=== PATIENT | female | born 1960 | race Caucasian/White ===

== ENCOUNTER 2023-11-24 10:42 | Outpatient (AMB) | payer OTHER, SELFPAY ==
--- NOTE | 2023-11-24 10:47 | A.OFFPC_ITS ---
Vital Signs 11/24/23 10:49 Height 5 ft 3.75 in Weight 158 lb BMI 27.3 BP 100/56 L Blood Pressure Location Lt brachial Position Sitting Respiration 12 Pulse 83 Pulse Source Pulse Oximeter Pulse Oximetry (%) 98 Oxygen Delivery Method Room Air Intake Visit Reasons: MARYCRU[facility] from [facility] Intake Note: Patient is here to establish care with [facility]. Patient reports she is in constant pain with her back. Naturopathic Doctor Required: No Accompanied by: Self / Same As Patient Allergies nabumetone [From Relafen] Allergy (Severe, Verified 11/24/23 10:55) Anaphylaxis simvastatin Allergy (Severe, Verified 11/24/23 10:55) Muscle Pain BEE STING Allergy (Severe, Uncoded 11/24/23 10:55) Anaphylaxis Tobacco use date assessed: 11/24/23 Dental Screening Dental Screen Date: 11/24/23 Did you have a dental visit in the last 12 months?: Yes Did you have a dental problem in the last 6 months where you did not have access to dental care?: No Was dental information given to patient?: Patient has dentist HPI HPI Comments History of Present Illness Details The patient is a 63-year-old female with a past medical history of breast cancer, CHELE, asthma, tobacco use, seasonal allergies presenting for follo w-up Seen in 08/29/2023. Was endorsing fatigue. continues to suffer from fatigue Was worried about thyroid levels. Denied abnormal weight loss, night sweats Musculoskeletal: Osteoarthritis. Continue low back pain. Ankle. MRI lumbar spine with annular tear, degenerative changes but no nerve impingement. She felt that she was not positioned in the right way during her most recent MRI says during her 1st MRI they are very adamant that generally straight. She has Achilles tendinopathy. No fracture is identified. Requested ortho referral and repeat MRI for worsening back pain Heme/Onc: The patient has a history of left breast invasive ductal carcinoma T2 N0 grade 3 triple negative diagnosed 11/2017. She underwent left partial breast mastectomy: Dr. Patel). She stopped chemotherapy without completion (Taxol). She is now radiation early. Was receiving in May 2018. She has taken a rib antioxidants/anti-inflammatory supplements. Her MRI is up-to-date. She feels nauseous for the 1-2 days following contrast Colonoscopy 2011 Due for breast cancer screening last mammo 2020 this was ordered. ROS see HPI PHYSICAL EXAM: GENERAL: Alert and oriented x 3. NAD EYES: EOMI. Anicteric. HENT: Moist mucous membranes. No scleral icterus. No cervical lymphadenopathy. LUNGS: Clear to auscultation bilaterally. CARDIOVASCULAR: Regular rate and rhythm. No murmur. No JVD. ABDOMEN: Soft, non-tender +bs EXTREMITIES: No edema. Non-tender. SKIN: No rashes or lesions. Warm. NEUROLOGIC: No focal neurological deficits. CN II-XII grossly intact PSYCHIATRIC: Cooperative. Appropriate mood and affect [facility] Medical History Tobacco use disorder, continuous Seasonal allergies Right shoulder pain Right ankle pain Low back pain Left knee pain Injury of left thumb Fall (on) (from) other stairs and steps, subsequent encounter DDD (degenerative disc disease), lumbosacral Breast cancer of upper-outer quadrant of left female breast Asthma Arthritis Acute exacerbation of chronic low back pain Surgical History History of total cystectomy History of tonsillectomy and adenoidectomy History of colonoscopy History of lumpectomy Family History Mother Skin cancer Diabetes Thyroid condition Father Heart disease Acute leukemia Maternal Grandmother Uterine cancer Paternal Grandfather Stomach cancer Paternal Uncle Bladder cancer FH: prostate cancer Social History Household Members: None Housing: House Alcohol intake: current Alcohol intake frequency: a few times a week Patient Tobacco Use Status: Current everyday Tobacco user Cigarettes Per Day: 4 Years Smoked: 16 e-Cigarette/Vaping Use: Never Used service: No Current occupational status: disabled Cognitive needs: No Hearing needs: No Vision needs: Yes (reading glasses) Questionnaire PHQ-9 Over the last 2 weeks, how often have you been bothered by any of the following problems? [id number] - PHQ-9 Billing: Patient declined-do not bill Source: Developed by Drs. Arias Kohli, Consuelo Vance, Chauncey Bower and colleagues, with an educational yoly from [employer]. Thrive Questionnaire Date Thrive assessed: 11/24/23 I am a: Patient What is your living situation today?: I have a steady place to live Within the past 12 months, did the food you bought not last and you didn't have the money to get more?: I choose not to answer this question Within the past 12 months, did you worry whether your food would run out before you got money to buy more?: I choose not to answer this question Do you have trouble paying for medicines?: I choose not to answer this question Do you have trouble getting transportation to medical appointments?: I choose not to answer this question Do you have trouble paying your heating and electricity bill?: I choose not to answer this question Do you have trouble taking care of your child, family member or friend?: I choose not to answer this question Do you have trouble with day-to-day activities such as bathing, preparing meals, shopping, managing finances, etc.?: I choose not to answer this question Are you currently unemployed and looking for a job?: I choose not to answer this question Are you interested in more education?: I choose not to answer this question Please select the resources that you would like help with: None Currently or been in a relationship where the following occur: No concerns reported THRIVE Score: 0 AUDIT C Alcohol Use Questionnaire (AUDIT-C) 1. How often do you have a drink containing alcohol?: Monthly or less 2. How many drinks containing alcohol do you have on a typical day when you are drinking?: 1 or 2 3. How often do you have six or more drinks on one occasion?: Never Total Score: 1 FATMATA-7 AMB Questionnaire FATMATA-7 Date FATMATA - 7 assessed: 11/24/23 Source: Developed by Drs. Arias Kohli, Consuelo Vance, Chauncey Bower and colleagues, with an educational yoly from [employer]. FATMATA-7 Assessment Billing FATMATA-7 Assessment Tool: pt declined-do not bill Physical exam (Primary Care) Vital Signs: Last Vital Signs Pulse 83 11/24/23 10:49 Resp 12 11/24/23 10:49 BP 100/56 L 11/24/23 10:49 Pulse Ox 98 11/24/23 10:49 Oxygen Delivery Method Room Air 11/24/23 10:49 BMI result Body Mass Index 27.3 Tobacco/Smoking Status: Tobacco use Status Tobacco use date assessed 11/24/23 11/24/23 10:58 Patient Tobacco Use Status Current everyday Tobacco 11/24/23 10:55 e-Cigarette/Vaping Use Never Used 11/24/23 10:55 Thrive Assessment: Date of Thrive Assessment Date Thrive assessed 11/24/23 11/24/23 10:58 Currently or been in a relationship where the following occur: No concerns reported Assessment and Plan Assessment & Plan (1) DDD (degenerative disc disease), lumbosacral: Code(s): M51.37 - Other intervertebral disc degeneration, lumbosacral region Plan: hydrocodone-acetaminophen ordered which she has used with good relief Continue cyclobenzaprine MRI ordered (2) Low back pain: Code(s): M54.50 - Low back pain, unspecified Qualifiers: Back pain laterality: unspecified Chronicity: chronic Sciatica laterality: bilateral sciatica Sciatica presence: with sciatica Qualified Code(s): M54.41 - Lumbago with sciatica, right side; M54.42 - Lumbago with sciatica, left side; G89.29 - Other chronic pain Plan: Lumbosacral DDD. MRI ordered (3) Herniated intervertebral disc of lumbar spine: Code(s): M51.26 - Other intervertebral disc displacement, lumbar region (4) Enlarged thyroid: Code(s): E04.9 - Nontoxic goiter, unspecified Plan: us ordered. patient request full thyroid panel Orders: Orders MR lumbar spine wo con 11/24/23 M51.26 - Other intervertebral disc displace ment, lumbar region, M51.37 - Other intervertebral disc degeneration, lumbosacral region, M54.50 - Low back pain, unspecified TSH reflex Free T4 11/24/23 E04.9 - Nontoxic goiter, unspecified Triiodothyronine T3 Free 11/24/23 E04.9 - Nontoxic goiter, unspecified Thyroid Stimulating Hormone 11/24/23 E04.9 - Nontoxic goiter, unspecified Thyroid Peroxidase Antibodies 11/24/23 E04.9 - Nontoxic goiter, unspecified US soft tiss head and/or neck 11/24/23 E04.9 - Nontoxic goiter, unspecified PT Evaluation and Treatment 11/24/23 M51.26 - Other intervertebral disc displacement, lumbar region, M51.37 - Other intervertebral disc degeneration, lumbosacral region, M54.50 - Low back pain, unspecified Triiodothyronine T3 Reverse 11/24/23 E04.9 - Nontoxic goiter, unspecified Triiodothyronine T3 Total 11/24/23 E04.9 - Nontoxic goiter, unspecified Free T4 (Free Thyroxine) 11/24/23 E04.9 - Nontoxic goiter, unspecified Referrals Orthopedics Referral M51.37 - Other intervertebral disc degeneration, lumbosacral region Medications: New cyclobenzaprine 10 mg PO BID 90 tabs 0RF muscle spasm hydrocodone-acetaminophen 5-300 mg Partial Fill upon patient request. 1 tab PO Q8H PRN 56 tabs 0RF pain 28 days Coding Level of Care Code Est Pt Level 5 (07708) Diagnoses DDD (degenerative disc disease), lumbosacral M51.37 Chronic low back pain with bilateral sciatica, unspecified back pain laterality M54.41; M54.42; G89.29 Back pain laterality: unspecified Chronicity: chronic Sciatica laterality: bilateral sciatica Sciatica presence: with sciatica Herniated intervertebral disc of lumbar spine M51.26 Enlarged thyroid E04.9
[2023-11-24 10:49] VITALS: BP 100/56; PULSE 83; RESP 12; O2SAT 98; BMI 27.3
== END 2023-11-24 11:25 | disposition home or self-care (01) ==
PROVIDERS: Visit Provider Internal Medicine
DX: M51.37 Other intervertebral disc degeneration, lumbosacral region (principal); M54.41 Lumbago with sciatica, right side; M54.42 Lumbago with sciatica, left side; G89.29 Other chronic pain; M51.26 Other intervertebral disc displacement, lumbar region; E04.9 Nontoxic goiter, unspecified
CPT/HCPCS: 99214

== ENCOUNTER 2023-11-24 11:26 | Outpatient (REF) | payer OTHER, SELFPAY ==
[2023-11-24 14:47] LABS: Free T4 (Free Thyroxine) 0.91 ng/dL (0.71-1.85); TSH reflex Free T4 1.33 uIU/mL (0.32-4.0); Thyroid Stimulating Hormone 1.33 uIU/mL (0.32-4.0)
[2023-11-25 15:54] LABS: Triiodothyronine T3 Free 2.9 pg/mL (2.3-4.2); Triiodothyronine T3 Total 89 ng/dL (76-181)
[2023-11-25 17:29] LABS: Thyroid Peroxidase Antibodies 5 IU/mL (<9)
[2023-11-29 07:04] LABS: Triiodothyronine T3 Reverse 14 ng/dL (8-25)
== END 2023-11-24 11:27 | disposition home or self-care (01) ==
LOC: HO.WFDLDS 11:26
PROVIDERS: Visit Provider Internal Medicine
DX: E04.9 Nontoxic goiter, unspecified (principal); M51.37 Other intervertebral disc degeneration, lumbosacral region; M51.26 Other intervertebral disc displacement, lumbar region
CPT/HCPCS: 36415; 84439; 84443; 84480; 84481; 84482; 86376

== ENCOUNTER 2023-12-04 08:13 | Outpatient (REF) | payer OTHER, SELFPAY ==
--- NOTE | ~2023-12-04 | US_ITS ---
EXAMINATION: US THYROID CLINICAL INFORMATION: Nontoxic goiter, unspecified. COMPARISON: None available. TECHNIQUE: Linear transducer grayscale and color Doppler examination with attention to the region of the thyroid. FINDINGS: SIZE: Measurements of the thyroid lobes and nodules are given in sagittal, anteroposterior and transverse dimensions respectively. Right Thyroid Lobe: 4.9 x 1.4 x 1.2 cm, volume 4.4 mL. Parenchyma: The gland echotexture is homogeneous. Thyroid vascularity is normal. Left Thyroid Lobe: 4.2 x 1.1 x 1.4 cm, volume 3.3 mL. Parenchyma: The gland echotexture is homogeneous. Thyroid vascularity is normal. Isthmus: 0.48 cm in maximum AP dimension. Estimated total number of nodules greater than or equal to 1 cm: 0. Quarter Lining Smoother nodules are described as follows: 1. Location: Left mid. Size: 0.85 x 0.42 x 0.47 cm, volume 0.09 mL. Nodule characteristics: Composition: Mixed cystic and solid (1). Echogenicity: Hypoechoic (2). Shape: Not taller than wide (0). Margins: Smooth (0). Echogenic Foci: None (0). ACR TI-RADS total points: 3 ACR TI-RADS category: 3 2. Location: Left isthmus. Size: 0.85 x 0.52 x 0.84 cm, volume 0.19 mL. Nodule characteristics: Composition: Mixed cystic and solid (1). Echogenicity: Hypoechoic (2). Shape: Not taller than wide (0). Margins: Smooth (0). Echogenic Foci: None (0). ACR TI-RADS total points: 3 ACR TI-RADS category: 3 NODES: No lymphadenopathy is seen in the tissue surrounding the thyroid gland. US/US thyroid IMPRESSION: Two left TR3 thyroid nodules each measuring 0.85 cm. ACR TI-RADS RECOMMENDATION REFERENCE: Ultrasound-guided fine-needle aspiration, followup ultrasound, no further follow up. * TR1 (0 point) and TR2 (2 points): No FNA or follow up. * TR3 (3 points): FNA if more than or equal to 2.5 cm in maximum dimension, followup ultrasound in 1, 3 and 5 years if 1.5 to 2.4 cm in maximum dimension. * TR4 (4-6 points): FNA if more than or equal to 1.5 cm in maximum dimension, followup ultrasound in 1, 2, 3 and 5 years if 1 to 1.4 cm in maximum dimension. * TR5 (more than or equal to 7 points): FNA if more than or equal to 1 cm in maximum dimension, followup ultrasound every year for 5 years if 0.5 to 0.9 cm in maximum dimension. * TR3, TR4 or TR5 nodules that are below the size threshold for followup receive no follow up.
== END 2023-12-04 08:14 | disposition home or self-care (01) ==
LOC: HO.HMGCX 08:13
PROVIDERS: PCP Internal Medicine; Visit Provider Internal Medicine
DX: E04.9 Nontoxic goiter, unspecified (principal)
CPT/HCPCS: 76536

== ENCOUNTER 2024-01-01 09:35 | Outpatient (AMB) | payer OTHER, SELFPAY ==
[2024-01-01 10:35] VITALS: BP 132/58; PULSE 67; RESP 12; O2SAT 100
--- NOTE | 2024-01-01 10:35 | A.OFFPC_ITS ---
Vital Signs 01/01/24 10:35 Height 5 ft 3.75 in BP 132/58 L Blood Pressure Location Rt brachial Position Sitting Respiration 12 Pulse 67 Pulse Source Pulse Oximeter Pulse Oximetry (%) 100 Oxygen Delivery Method Room Air Intake Visit Reasons: follow up medications Intake Note: Patient is here to follow up for thyroid and mammogram testing appointment. Patient has an appointment for spinal doctor and would like to have a new MRI completed prior to this appointment Master Sheet Clerk Required: No Accompanied by: Self / Same As Patient Allergies nabumetone [From Relafen] Allergy (Severe, Verified 01/01/24 10:41) Anaphylaxis simvastatin Allergy (Severe, Verified 01/01/24 10:41) Muscle Pain BEE STING Allergy (Severe, Uncoded 01/01/24 10:41) Anaphylaxis Tobacco use date assessed: 11/24/23 Dental Screening Dental Screen Date: 11/24/23 HPI HPI Comments History of Present Illness Details The patient is a 63-year-old female with a past medical history of breast cancer, CHELE, asthma, tobacco use, seasonal allergies presenting for follow-up Musculoskeletal: Osteoarthritis, low back pain. Ankle pain. Previous MRI lumbar spine with annular tear, degenerative changes but no nerve impingement. She felt that she was not positioned in the right way during her most recent MRI says during her 1st MRI they are very adamant that generally straight. She has Achilles tendinopathy. No fracture is identified. Repeat MRI pending. Upcoming spine center visit booked. New left shoulder pain with abduction following recent fall. Heme/Onc: The patient has a history of left breast invasive ductal carcinoma T2 N0 grade 3 triple negative diagnosed 11/2017. She underwent left partial breast mastectomy: Dr. Patel). She stopped chemotherapy without completion (Taxol). She is now radiation early. Was receiving in May 2018. She has taken a rib antioxidants/anti-inflammatory supplements. Mammo 07/2023 benign. She feels nauseous for the 1-2 days following contrast Colonoscopy 2011 ROS see HPI PHYSICAL EXAM: GENERAL: Alert and oriented x 3. NAD EYES: EOMI. Anicteric. HENT: Moist mucous membranes. No scleral icterus. No cervical lymphadenopathy. LUNGS: Clear to auscultation bilaterally. CARDIOVASCULAR: Regular rate and rhythm. No murmur. No JVD. ABDOMEN: Soft, non-tender +bs EXTREMITIES: No edema. Non-tender. SKIN: No rashes or lesions. Warm. NEUROLOGIC: No focal neurological deficits. CN II-XII grossly intact PSYCHIATRIC: Cooperative. Appropriate mood and affect [facility] Medical History Tobacco use disorder, continuous Seasonal allergies Right shoulder pain Right ankle pain Low back pain Left knee pain Injury of left thumb Fall (on) (from) other stairs and steps, subsequent encounter DDD (degenerative disc disease), lumbosacral Breast cancer of upper-outer quadrant of left female breast Asthma Arthritis Acute exacerbation of chronic low back pain Surgical History History of total cystectomy History of tonsillectomy and adenoidectomy History of colonoscopy History of lumpectomy Family History Mother Skin cancer Diabetes Thyroid condition Father Heart disease Acute leukemia Maternal Grandmother Uterine cancer Paternal Grandfather Stomach cancer Paternal Uncle Bladder cancer FH: prostate cancer Social History Household Members: None Housing: House Alcohol intake: current Alcohol intake frequency: a few times a week Patient Tobacco Use Status: Current everyday Tobacco user Cigarettes Per Day: 4 Years Smoked: 16 e-Cigarette/Vaping Use: Never Used service: No Current occupational status: disabled Cognitive needs: No Hearing needs: No Vision needs: Yes (reading glasses) Questionnaire Thrive Questionnaire Date Thrive assessed: 11/24/23 FATMATA-7 AMB Questionnaire FATMATA-7 Date FATMATA - 7 assessed: 11/24/23 Source: Developed by Drs. Arias Kohli, Consuelo Vance, Chauncey Bower and colleagues, with an educational yoly from [employer]. Physical exam (Primary Care) Vital Signs: Last Vital Signs Pulse 67 01/01/24 10:35 Resp 12 01/01/24 10:35 BP 132/58 L 01/01/24 10:35 Pulse Ox 100 01/01/24 10:35 Oxygen Delivery Method Room Air 01/01/24 10:35 Tobacco/Smoking Status: Tobacco use Status Tobacco use date assessed 11/24/23 01/01/24 10:42 Patient Tobacco Use Status Current everyday Tobacco 01/01/24 10:42 e-Cigarette/Vaping Use Never Used 01/01/24 10:42 Thrive Assessment: Date of Thrive Assessment Date Thrive assessed 11/24/23 01/01/24 10:42 Assessment and Plan Assessment & Plan (1) DDD (degenerative disc disease), lumbosacral: Code(s): M51.37 - Other intervertebral disc degeneration, lumbosacral region Plan: stable. continue current medications. MRI pending. Seeing spine at end of month (2) Herniated intervertebral disc of lumbar spine: Code(s): M51.26 - Other intervertebral disc displacement, lumbar region (3) Low back pain: Code(s): M54.50 - Low back pain, unspecified Qualifiers: Chronicity: chronic Back pain laterality: unspecified Sciatica presence: with sciatica Sciatica laterality: bilateral sciatica Qualified Code(s): M54.41 - Lumbago with sciatica, right side; M54.42 - Lumbago with sciatica, left side; G89.29 - Other chronic pain (4) Left shoulder pain: Code(s): M25.512 - Pain in left shoulder Qualifiers: Chronicity: acute Qualified Code(s): M25.512 - Pain in left shoulder Plan: referral to PT. Orders: Orders PT Evaluation and Treatment Today M25.512 - Pain in left shoulder Coding Level of Care Code Est Pt Level 4 (26587) Diagnoses DDD (degenerative disc disease), lumbosacral M51.37 Herniated intervertebral disc of lumbar spine M51.26 Chronic low back pain with bilateral sciatica, unspecified back pain laterality M54.41; M54.42; G89.29 Chronicity: chronic Back pain laterality: unspecified Sciatica presence: with sciatica Sciatica laterality: bilateral sciatica Acute pain of left shoulder M25.512 Chronicity: acute
== END 2024-01-01 11:16 | disposition home or self-care (01) ==
PROVIDERS: PCP Internal Medicine; Visit Provider Internal Medicine
DX: M51.37 Other intervertebral disc degeneration, lumbosacral region (principal); M51.26 Other intervertebral disc displacement, lumbar region; M54.41 Lumbago with sciatica, right side; M54.42 Lumbago with sciatica, left side; G89.29 Other chronic pain; M25.512 Pain in left shoulder
CPT/HCPCS: 99214

== ENCOUNTER → 2024-01-08 08:43 | Outpatient (BNVA) | payer OTHER, SELFPAY | PROVIDERS: PCP Internal Medicine; Visit Provider Neurological Surgery ==

== ENCOUNTER 2024-02-05 13:54 | Outpatient (REF) | payer OTHER, SELFPAY ==
--- NOTE | ~2024-02-05 | XR_ITS ---
EXAMINATION: XR LUMBOSACRAL SPINE CLINICAL INFORMATION: M48.062 - Spinal stenosis, lumbar region with neurogenic claudication COMPARISON: None available. TECHNIQUE: Three views of the lumbosacral spine. FINDINGS: Normal bony mineralization. No fracture, compression deformity, or suspicious focal bony abnormality. There is a mild levoconvex scoliosis, apex at L2-3. There is a normal lordosis. There is normal alignment without subluxation. Mild disc space narrowing noted in L4-5, and moderate narrowing At L5-S1. Associated degenerative facet changes present L4-S1. Sacrum appears intact. There are mild degenerative changes in the SI joints. Soft tissues demonstrate mild vascular calcifications. XR/XR lumbar spine 4V min IMPRESSION: 1. No acute findings lumbar spine. 2. Mild levoconvex scoliosis. 3. Mild to moderate degenerative spondylosis relatively confined to L4-5 and L5-S1 as discussed. Electronically signed by: Yuriy Ruth MD 04/15/2024 03:56 PM [facility]
== END 2024-02-05 13:55 | disposition home or self-care (01) ==
LOC: HO.XRAY 13:54
PROVIDERS: PCP Internal Medicine; Visit Provider Neurological Surgery
DX: M48.062 Spinal stenosis, lumbar region with neurogenic claudication (principal)
CPT/HCPCS: 72110; 99202

== ENCOUNTER 2024-02-05 13:54 | Outpatient (AMB) | payer OTHER, SELFPAY ==
--- NOTE | 2024-02-05 13:56 | A.SPINEOV_ITS ---
Intake Visit Reasons: lumbosacral region Intake Note: Ms. Hudson is here today c/o low back pain. Hospice Home Health Aide Required: No Allergies nabumetone [From Relafen] Allergy (Severe, Verified 01/01/24 10:41) Anaphylaxis simvastatin Allergy (Severe, Verified 01/01/24 10:41) Muscle Pain BEE STING Allergy (Severe, Uncoded 01/01/24 10:41) Anaphylaxis Assessment & Plan Assessment & Plan (1) Lumbar stenosis with neurogenic claudication: Code(s): M48.062 - Spinal stenosis, lumbar region with neurogenic claudication Category: Medical Plan: Dear colleague Thank you for referring Gifty Hudson to the office today with a chief complaint of low back pain. HPI: This 63-year-old female complains of progressive severe low back pain. Pain gets worse when he changes positions. In addition she has pain radiating down both legs and tiredness with walking and standing. His improves when she sits down. She can only walk short distances. Apparently, she had an MRI done that showed a normal spine despite having an MRI earlier that showed a lot of abnormalities. There was question if an error was made inpatient identity. The following conservative treatment options were tried without success antiinflammatories, tylenol, physical therapy, cortisone shots PMH: Tonsillectomy, hypercholesterolemia Medications: Supplements Allergies: Simvastatin, nabumetone Social history: Nonsmoker Physical Exam: Pleasant female. She can demonstrate pain in her back when changing positions. No deformity visible. Neurological exam is intact for motor sensation and reflexes. Radiological Studies: No imaging is available for review] Impression/Plan: Clinically, this patient is suffering from neurogenic claudication. I obtained flexion-extension x-rays today which show no signs of instability or made deformity. I will order an MRI of the lumbar spine with his suspected diagnosis of lumbar spinal stenosis. I will see her after the test is done. Thank you for allowing me to participate in your patients care. total time spent was 50 minutes in counseling ,coordination of plan, personal review of imaging, and subsequent plan Luis Daniel Prather MD, PhD Spine Fellowship Trained Neurosurgeon Director, [facility] Orders: Orders XR lumbar spine 4V min Today M48.062 - Spinal stenosis, lumbar region with neurogenic claudication MR lumbar spine wo con Today M48.062 - Spinal stenosis, lumbar region with neurogenic claudication Coding Level of Care Code New Pt Level 4 (81913) Diagnoses Lumbar stenosis with neurogenic claudication M48.062
== END 2024-02-05 16:28 | disposition home or self-care (01) ==
PROVIDERS: PCP Internal Medicine; Referring Provider Internal Medicine; Visit Provider Neurological Surgery
DX: M48.062 Spinal stenosis, lumbar region with neurogenic claudication (principal)
CPT/HCPCS: 99204

== ENCOUNTER → 2024-02-05 14:43 | Outpatient (BNV) | payer OTHER, SELFPAY | PROVIDERS: PCP Internal Medicine; Visit Provider Radiology Diagnostic Radiology | DX: M48.062 Spinal stenosis, lumbar region with neurogenic claudication (principal) | CPT/HCPCS: 72110 ==

== ENCOUNTER 2024-02-16 07:00 | Outpatient (RCR) | payer OTHER, SELFPAY ==
--- NOTE | 2024-02-03 12:02 | MHC.PT.EP ---
[facility] [place] [facility] [place] [employer] [facility] [place] [facility] [address] [phone] F: [phone] F: [phone] F: [phone] F: [phone] Physical Therapy Plan of Care Date of Evaluation: 02/03/24 Date of Surgery: Diagnosis: L shoulder pain Assessment: 63 y/o R-hand dominant female referred to PT with L shoulder pain. S/s consistent with RTC tendinopathy and ? tear resulting in pain and difficulty in raising arm > 45*, reaching, lifting, grooming, folding laundry, chores, and sleeping. Examination shows significantly decreased A/PROM of L shoulder, decreased L shoulder strength, TTP, decreased cervical ROM, and increased pain. Recommend PT 2x/week for 5 weeks to address impairments, implement HEP, and optimize functional mobility. Frequency and Duration: The patient will be seen 2x/week for 5 weeks Short Term Goals: 3 weeks I with HEP Fdc Goals: 5 weeks I with HEP and self management of sx Pt will improve L shoulder ROM to 90* flexion to facilitate ADLs Pt will improve L shoulder strength to >3+/5 to faciliate ADL's Treatment Plan: Modalities to reduce pain, spasms and effusion. Manual therapy to restore motion and function. Therapeutic exercise to improve strength and flexibility. Neuromuscular re-education for posture and balance. Therapeutic activities to return to functional activities of daily living. Electronically signed by: Radha London PT Please sign and return to therapist. Thank you for your referral.
--- NOTE | 2024-03-21 14:24 | MHC.PT.DC ---
[facility] [place] Office [place] Office [place] Office [address] Sabrina Jenkins [address] [phone] F: [phone] F: [phone] F: [phone] F: [phone] Physical Therapy Discharge Report Diagnosis: L shoulder pain Date of Surgery: Date of Evaluation: 02/03/24 Date of Discharge: 03/21/24 Treatments to Date: 3 Cancellations to Date: 3 No Shows to Date: 0 Discharge Status: Patient Elected to Stop Discharge Summary: Pt called to cancel all appointments as she is having difficulty making appointments. Close chart at this time Electronically signed by: Radha London PT Please sign and return to therapist. Thank you for your referral.
== END 2024-03-21 14:24 | disposition home or self-care (01) ==
LOC: HO.PT 07:00
PROVIDERS: PCP Internal Medicine; Visit Provider Internal Medicine
DX: M25.512 Pain in left shoulder (principal)
CPT/HCPCS: 97110; 97140; 97162

== ENCOUNTER 2024-02-19 10:39 | Outpatient (AMB) | payer OTHER, SELFPAY ==
--- NOTE | 2024-02-19 11:04 | A.OFFPC_ITS ---
Vital Signs 02/19/24 11:09 Height 5 ft 3.75 in Weight 161 lb 8 oz BMI 27.9 BP 118/86 Pulse 66 Pulse Source Pulse Oximeter Temp 98.4 F Temp Source Oral Pulse Oximetry (%) 96 Oxygen Delivery Method Room Air Intake Visit Reasons: multiple concerns, see triage note. Intake Note: Lump in back of right ear, bloating and diarrhea after eating. fungal infection behind the left of ear/head and bumps. Requesting referral to GI and dermatology. Allergies nabumetone [From Relafen] Allergy (Severe, Verified 02/19/24 11:07) Anaphylaxis simvastatin Allergy (Severe, Verified 02/19/24 11:07) Muscle Pain BEE STING Allergy (Severe, Uncoded 02/19/24 11:07) Anaphylaxis Tobacco use date assessed: 11/24/23 Dental Screening Dental Screen Date: 11/24/23 HPI HPI Comments History of Present Illness Details The patient is a 63-year-old female with a past medical history of breast cancer, CHELE, asthma, tobacco use, seasonal allergies presenting for follow-up She has had more than 2 weeks of loose frequent non bloody stools. She has had ongoing bloating and bouts of diarrhea for months but worsened over the past 2 years. She is overdue for colon cancer screening She has a rash behind the ears and on her scalp. More noticeable crustiness behind the left ear and she can feel the lymph node there Musculoskeletal: Osteoarthritis, low back pain. Ankle pain. Previous MRI lumbar spine with annular tear, degenerative changes but no nerve impingement. She felt that she was not positioned in the right way during her most recent MRI says during her 1st MRI they are very adamant that generally straight. She has Achilles tendinopathy. No fracture is identified. Repeat MRI pending. Upcoming spine center visit booked. New left shoulder pain with abduction following recent fall. Heme/Onc: The patient has a history of left breast invasive ductal carcinoma T2 N0 grade 3 triple negative diagnosed 11/2017. She underwent left partial breast mastectomy: Dr. Patel). She stopped chemotherapy without completion (Taxol). She is now radiation early. Was receiving in May 2018. She has taken a rib antioxidants/anti-inflammatory supplements. Mammo 07/2023 benign. She feels nauseous for the 1-2 days following contrast Colonoscopy 2011 ROS see HPI PHYSICAL EXAM: GENERAL: Alert and oriented x 3. NAD EYES: EOMI. Anicteric. HENT: Moist mucous membranes.Ear canals clear LUNGS: Clear to auscultation bilaterally. CARDIOVASCULAR: Regular rate and rhythm. No murmur. No JVD. ABDOMEN: Soft, non-tender +bs EXTREMITIES: No edema. Non-tender. SKIN: sebhorreic dermatitis of the scalp, dermatitis in the posterior ear fold with palpable posterior auricular LN on the left NEUROLOGIC: No focal neurological deficits. CN II-XII grossly intact PSYCHIATRIC: Cooperative. Appropriate mood and affect [facility] Medical History Tobacco use disorder, continuous Seasonal allergies Right shoulder pain Right ankle pain Low back pain Left knee pain Injury of left thumb Fall (on) (from) other stairs and steps, subsequent encounter DDD (degenerative disc disease), lumbosacral Breast cancer of upper-outer quadrant of left female breast Asthma Arthritis Acute exacerbation of chronic low back pain Surgical History History of total cystectomy History of tonsillectomy and adenoidectomy History of colonoscopy History of lumpectomy Family History Mother Skin cancer Diabetes Thyroid condition Father Heart disease Acute leukemia Maternal Grandmother Uterine cancer Paternal Grandfather Stomach cancer Paternal Uncle Bladder cancer FH: prostate cancer Social History Household Members: None Housing: House Alcohol intake: current Alcohol intake frequency: a few times a week Patient Tobacco Use Status: Current everyday Tobacco user Cigarettes Per Day: 4 Years Smoked: 16 e-Cigarette/Vaping Use: Never Used service: No Current occupational status: disabled Cognitive needs: No Hearing needs: No Vision needs: Yes (reading glasses) Questionnaire Thrive Questionnaire Date Thrive assessed: 11/24/23 FATMATA-7 AMB Questionnaire FATMATA-7 Date FATMATA - 7 assessed: 11/24/23 Source: Developed by Drs. Arias Kohli, Consuelo Vance, Chauncey Bower and colleagues, with an educational yoly from [employer] Physical exam (Primary Care) Tobacco/Smoking Status: Tobacco use Status Tobacco use date assessed 11/24/23 02/19/24 11:04 Patient Tobacco Use Status Current everyday Tobacco 02/19/24 11:04 e-Cigarette/Vaping Use Never Used 02/19/24 11:04 Thrive Assessment: Date of Thrive Assessment Date Thrive assessed 11/24/23 02/19/24 11:04 Coding Level of Care Code Est Pt Level 4 (79518) Complex EM visit Add On G2211 Diagnoses Dermatitis L30.9 Bloating R14.0 Diarrhea, unspecified type R19.7 Diarrhea type: unspecified type Assessment & Plan Assessment & Plan (1) Dermatitis: Code(s): L30.9 - Dermatitis, unspecified Category: Medical Plan: combo antifungal shampoo and cream Referral to dermatology (2) Bloating: Code(s): R14.0 - Abdominal distension (gaseous) Category: Medical Plan: see below (3) Diarrhea: Code(s): R19.7 - Diarrhea, unspecified Category: Medical Qualifiers: Diarrhea type: unspecified type Qualified Code(s): R19.7 - Diarrhea, unspecified Plan: She is on probiotic Will get stool and bloodwork Referral to GI placed Orders: Orders Comprehensive Met. Panel Today R14.0 - Abdominal distension (gaseous), R19.7 - Diarrhea, unspecified Calprotectin, Fecal Today R14.0 - Abdominal distension (gaseous), R19.7 - Diarrhea, unspecified Pancreatic Elastase-1 Today R14.0 - Abdominal distension (gaseous), R19.7 - Diarrhea, unspecified H pylori Ag Stool Today R14.0 - Abdominal distension (gaseous), R19.7 - Diarrhea, unspecified Ova and Parasite Today R14.0 - Abdominal distension (gaseous), R19.7 - Diarrhe a, unspecified Complete Blood Count Auto Diff Today R14.0 - Abdominal distension (gaseous), R19.7 - Diarrhea, unspecified Erythrocyte Sedimentation Rate Today R14.0 - Abdominal distension (gaseous), R19.7 - Diarrhea, unspecified Celiac Disease Panel Today R14.0 - Abdominal distension (gaseous), R19.7 - Diarrhea, unspecified Referrals Dermatology Referral L30.9 - Dermatitis, unspecified Gastroenterology Referral R14.0 - Abdominal distension (gaseous), R19.7 - Diarrhea, unspecified Medications: New clotrimazole-betamethasone 1-0.05 % 1 appl topical BID 4 weeks 45 grams 3RF ciclopirox-clobetasol 0.77-0.05 % Apply approximately 2 tablespoon topically to scalp, massage in, leave 5 minutes and rinse out 2 times per weel 120 mL 3RF
[2024-02-19 11:09] VITALS: BP 118/86; PULSE 66; TEMP 36.9; O2SAT 96; BMI 27.9
== END 2024-02-19 11:33 | disposition home or self-care (01) ==
PROVIDERS: PCP Internal Medicine; Visit Provider Internal Medicine
DX: L30.9 Dermatitis, unspecified (principal); R14.0 Abdominal distension (gaseous); R19.7 Diarrhea, unspecified

== ENCOUNTER → 2024-02-19 10:39 | Outpatient (BNVA) | payer OTHER, SELFPAY | PROVIDERS: PCP Internal Medicine; Visit Provider Internal Medicine | DX: L30.9 Dermatitis, unspecified (principal); R14.0 Abdominal distension (gaseous); R19.7 Diarrhea, unspecified | CPT/HCPCS: 99212 ==

== ENCOUNTER 2024-02-24 10:03 | Outpatient (REF) | payer OTHER, SELFPAY ==
[2024-02-24 13:16] LABS: MANUAL DIFF FLAG NO
[2024-02-24 13:38] LABS: Basophils Percent Auto 0.7 % (0-2); Eosinophils Absolute Auto 0.1 X10*3/uL (0.0-0.4); Eosinophils Percent Auto 1.5 % (0-4); Hematocrit 42.8 % (37.0-47.0); Hemoglobin 13.9 g/dl (12.0-16.0); Imm Gran Abs Auto 0.02 X10*3/uL (0.00-0.03); Imm Gran Pct Auto 0.3 % (0.0-0.4); Lymphocytes Absolute Auto 2.1 X10*3/uL (1.2-4.9); Lymphocytes Percent Auto 35.3 % (20-40); Mean Corpuscular HGB Conc 32.5 g/dl (31.0-35.0); Mean Corpuscular Hemoglobin 31.2 pg (27.0-33.0); Mean Platelet Volume 11.5 fL (9.4-12.3); Monocytes Absolute Auto 0.3 X10*3/uL (0.1-1.2); Monocytes Percent Auto 5.7 % (2-11); Neutrophils Absolute Auto 3.4 x10*3/uL (2.0-8.3); Neutrophils Percent Auto 56.5 % (45-73); Platelet Count 212 X10*3/uL (160-400); Red Blood Count 4.46 X10*6/uL (4.20-5.50); Red Cell Distribution Width 12.4 % (11.0-16.0)
[2024-02-24 14:12] LABS: Alanine Aminotransferase 27 U/L (0-31); Albumin Level 4.6 g/dL (3.5-5.0); Alkaline Phosphatase 92 U/L (39-117); Anion Gap 15 (12-20); Aspartate Amino Transferase 23 U/L (5-31); Blood Urea Nitrogen 13 mg/dL (9-16); Calcium 10.1 mg/dL (8.4-10.2); Carbon Dioxide 21 mmol/L (22-29); Chloride 109 mmol/L (96-108); Estimated Glomerular Filt Rate > 60; Glucose Random 102 mg/dL (60-115); Potassium 3.9 mmol/L (3.3-5.1); Sodium 141 mmol/L (135-145); Total Protein 8.2 g/dL (6.5-8.0)
[2024-02-24 14:14] LABS: Erythrocyte Sedimentation Rate 50 MM/HR (0-20)
[2024-02-24 14:30] LABS: Bilirubin Total 1.1 mg/dL (0.0-1.0)
[2024-02-29 13:58] LABS: Immunoglobulin A 258 mg/dL (70-320); Transglutaminase IgA <1.0 U/mL
[2024-03-02 19:23] LABS: Calprotectin, Fecal 13 mcg/g
[2024-03-03 21:13] LABS: Pancreatic Elastase-1 >500 mcg/g
== END 2024-02-24 10:04 | disposition home or self-care (01) ==
LOC: HO.HMGCLDS 10:03
PROVIDERS: PCP Internal Medicine; Visit Provider Internal Medicine
DX: R19.7 Diarrhea, unspecified (principal); R14.0 Abdominal distension (gaseous)
CPT/HCPCS: 36415; 80053; 82656; 82784; 83993; 85025; 85652; 86364; 87338

== ENCOUNTER 2024-02-25 09:18 | Outpatient (REF) | payer OTHER, SELFPAY | END 2024-02-25 09:19 | disposition home or self-care (01) | LOC: HO.HMGCLNP 09:18 | PROVIDERS: PCP Internal Medicine; Visit Provider Internal Medicine | DX: R14.0 Abdominal distension (gaseous) (principal); R19.7 Diarrhea, unspecified | CPT/HCPCS: 87177; 87209 ==

== ENCOUNTER 2024-03-16 13:46 | Outpatient (AMB) | payer OTHER, SELFPAY ==
--- NOTE | 2024-03-16 13:57 | AM.OFFWIN_ITS ---
Intake Vital Signs 03/16/24 14:01 Height 5 ft 3.75 in Weight 160 lb 4 oz BMI 27.7 BP 104/70 Blood Pressure Location Rt brachial Position Sitting Respiration 14 Pulse 82 Pulse Source Pulse Oximeter Temp 98.0 F Temp Source Oral Pulse Oximetry (%) 96 Oxygen Delivery Method Room Air Intake Visit Reasons: est/headache/sinus issues Intake Note: headache and post nasal drip Patient Tobacco Use Status: Current everyday Tobacco user Allergies nabumetone [From Relafen] Allergy (Severe, Verified 03/16/24 14:00) Anaphylaxis simvastatin Allergy (Severe, Verified 03/16/24 14:00) Muscle Pain BEE STING Allergy (Severe, Uncoded 03/16/24 14:00) Anaphylaxis Medication List - Last Reconciled 03/16/24 by Susan Landa CNP albuterol sulfate 2.5 mg (3 mL) inhalation Q4-6H PRN albuterol sulfate 90 mcg/actuation 2 inhalations inhalation Q4H PRN cholecalciferol (vitamin D3) 50 mcg PO DAILY clobetasol 0.05% 1 appl topical BEDTIME 4 weeks clotrimazole-betamethasone 1-0.05 % 1 appl topical BID 4 weeks cyclobenzaprine 10 mg PO BID fluconazole 150 mg PO Q3D 2 doses hydrocodone-acetaminophen 5-300 mg 1 tab PO Q8H PRN 7 days HPI HPI Comments History of Present Illness Details 63 y/o female presents with complaints o f generalized headache for the past 3-4 weeks. She has h/o chronic neck and bilateral shoulder pain. She had PT of her shoulders a few times and her last PT was a months ago. She stopped PT due to significant neck and left shoulder pain following after the procedure. She is on Vicodin and cyclobenzaprine but has not taken the medications in a while. She does not like taking medications and prefers natural remedies. She denies respiratory symptoms. [facility] Medical History Tobacco use disorder, continuous Seasonal allergies Right shoulder pain Right ankle pain Low back pain Left knee pain Injury of left thumb Fall (on) (from) other stairs and steps, subsequent encounter DDD (degenerative disc disease), lumbosacral Breast cancer of upper-outer quadrant of left female breast Asthma Arthritis Acute exacerbation of chronic low back pain Surgical History History of total cystectomy History of tonsillectomy and adenoidectomy History of colonoscopy History of lumpectomy Family History Mother Skin cancer Diabetes Thyroid condition Father Heart disease Acute leukemia Maternal Grandmother Uterine cancer Paternal Grandfather Stomach cancer Paternal Uncle Bladder cancer FH: prostate cancer Social History Household Members: None Housing: House Alcohol intake: current Alcohol intake frequency: a few times a week Patient Tobacco Use Status: Current everyday Tobacco user Cigarettes Per Day: 4 Years Smoked: 16 e-Cigarette/Vaping Use: Never Used service: No Current occupational status: disabled Cognitive needs: No Hearing needs: No Vision needs: Yes (reading glasses) Review of Systems Const Details: Denies chills, Denies fatigue, Denies fever(s), Reports headache(s) and Denies weakness ENT Reports as per HPI Cardiac Denies chest pain, Denies claudication, Denies leg edema, Denies lightheadedness, Denies palpitations, Denies dyspnea, Denies dyspnea on exertion, Denies orthopnea and Denies other (Loss of consciousness) Resp Denies cough, Denies excessive phlegm production, Denies dyspnea, Denies dyspnea on exertion, Denies snoring and Denies wheezing Physical Exam Const Other: General: comfortable and no acute distress Orientation/consciousness: patient oriented x3 HEENT Head is normocephalic Bilateral ear canal and TM are normal Cervical spine and sinuses are tender with palpation No auricular or cervical lymphadenopathy Chest Chest palpation & inspection: normal inspection of the chest Resp Auscultation: clear to auscultation bilaterally Cardiac Palpation: normal PMI Heart sounds: S1 normal heart sound present, S2 normal heart sound present, no gallops, no murmur, no rubs Assessment & Plan Assessment & Plan (1) Headache: Code(s): R51.9 - Headache, unspecified Plan: Patient reports generalized headache for the past 3-4 weeks. She has history of chronic neck and bilateral shoulder pain Cervical spine and sinuses are tender with palpation No evidence of viral or bacterial infection May take Tylenol as needed for dmph-uc-[id number] pain Encouraged to take cyclobenzaprine as prescribed. May help with possible cervic al spasm May take Vicodin for severe pain Warm/cool compresses encouraged Follow-up with PCP for worsening or new symptoms Verbalized understanding agreed with the treatment plan (2) Neck pain: Code(s): M54.2 - Cervicalgia Plan: Plan as above Coding Level of Care Code Est Pt Level 3 (09279) Diagnoses Headache R51.9 Neck pain M54.2
[2024-03-16 14:01] VITALS: BP 104/70; PULSE 82; RESP 14; TEMP 36.7; O2SAT 96; BMI 27.7
== END 2024-03-16 14:33 | disposition home or self-care (01) ==
PROVIDERS: PCP Internal Medicine; Visit Provider Nurse Practitioner Family
DX: R51.9 Headache, unspecified (principal); M54.2 Cervicalgia

== ENCOUNTER → 2024-03-16 13:46 | Outpatient (BNVA) | payer OTHER, SELFPAY | PROVIDERS: PCP Internal Medicine | DX: R51.9 Headache, unspecified (principal); M54.2 Cervicalgia | CPT/HCPCS: 99212 ==

== ENCOUNTER → 2024-03-25 16:32 | Outpatient (AMB) | payer OTHER, SELFPAY ==
--- NOTE | 2024-03-25 16:22 | A.OFFPC_ITS ---
Intake Visit Reasons: phone up Allergies nabumetone [From Relafen] Allergy (Severe, Verified 03/16/24 14:00) Anaphylaxis simvastatin Allergy (Severe, Verified 03/16/24 14:00) Muscle Pain BEE STING Allergy (Severe, Uncoded 03/16/24 14:00) Anaphylaxis Tobacco use date assessed: 11/24/23 Dental Screening Dental Screen Date: 11/24/23 HPI HPI Comments History of Present Illness Details The patient is a 63-year-old female with a past medical history of breast cancer, CHELE, asthma, tobacco use, seasonal allergies presenting for follow-up At last visit She has had more than 2 weeks of loose frequent non bloody stools. She has had ongoing bloating and bouts of diarrhea for months but worsened over the past 2 years. She is overdue for colon cancer screening. Stool studies were reassuring as was lab testing. Reviewed today Referral to gastroenterology She has a rash behind the ears and on her scalp. Some interval improvement. Awaiting dermatology evaluation Musculoskeletal: Osteoarthritis, low back pain. Ankle pain. Previous MRI lumbar spine with annular tear, degenerative changes but no nerve impingement. She felt that she was not positioned in the right way during her most recent MRI says during her 1st MRI they are very adamant that generally straight. She has Achilles tendinopathy. No fracture is identified. Repeat MRI pending. Upcoming spine center visit booked. New left shoulder pain with abduction following recent fall. Heme/Onc: The patient has a history of left breast invasive ductal carcinoma T2 N0 grade 3 triple negative diagnosed 11/2017. She underwent left partial breast mastectomy: Dr. Patel). She stopped chemotherapy without completion (Taxol). She is now radiation early. Was receiving in May 2018. She has taken a rib antioxidants/anti-inflammatory supplements. Mammo 07/2023 benign. She feels nauseous for the 1-2 days following contrast Colonoscopy 2011 ROS see HPI PHYSICAL EXAM: Telehealth [facility], [facility] Medical History Tobacco use disorder, continuous Seasonal allergies Right shoulder pain Right ankle pain Low back pain Left knee pain Injury of left thumb Fall (on) (from) other stairs and steps, subsequent encounter DDD (degenerative disc disease), lumbosacral Breast cancer of upper-outer quadrant of left female breast Asthma Arthritis Acute exacerbation of chronic low back pain Surgical History History of total cystectomy History of tonsillectomy and adenoidectomy History of colonoscopy History of lumpectomy Family History Mother Skin cancer Diabetes Thyroid condition Father Heart disease Acute leukemia Maternal Grandmother Uterine cancer Paternal Grandfather Stomach cancer Paternal Uncle Bladder cancer FH: prostate cancer Social History Household Members: None Housing: House Alcohol intake: current Alcohol intake frequency: a few times a week Patient Tobacco Use Status: Current everyday Tobacco user Cigarettes Per Day: 4 Years Smoked: 16 Packs per year/per ci.20 e-Cigarette/Vaping Use: Never Used service: No Current occupational status: disabled Cognitive needs: No Hearing needs: No Vision needs: Yes (reading glasses) Questionnaire Thrive Questionnaire Date Thrive assessed: 11/24/23 FATMATA-7 AMB Questionnaire FATMATA-7 Date FATMATA - 7 assessed: 11/24/23 Source: Developed by Drs. Arias Kohli, Consuelo Vance, Chauncey Bower and colleagues, with an educational yoly from [employer]. Physical exam (Primary Care) Tobacco/Smoking Status: Tobacco use Status Tobacco use date assessed 11/24/23 03/25/24 16:23 Patient Tobacco Use Status Current everyday Tobacco 03/25/24 16:23 e-Cigarette/Vaping Use Never Used 03/25/24 16:23 Thrive Assessment: Date of Thrive Assessment Date Thrive assessed 11/24/23 03/25/24 16:23 Telehealth Telehealth Telehealth Platform: [facility] Location of provider rendering services: practice address Location of patient: address on file Patient Identification confirmed using: Name, : Yes Telehealth method: voice only Patient verbally consented to treatment: Yes Patient verbally consented to billing insurance company: Yes Patient informed of any privacy concerns related to visit: Yes Minutes spent on Phone/Video with Pt.: 35 Coding Level of Care Code Tele Est Pt Level 4 (82056) Diagnoses Diarrhea, unspecified type R19.7 Diarrhea type: unspecified type Dermatitis L30.9 Chronic low back pain with bilateral sciatica, unspecified back pain laterality M54.41; M54.42; G89.29 Chronicity: chronic Back pain laterality: unspecified Sciatica presence: with sciatica Sciatica laterality: bilateral sciatica Assessment & Plan Assessment & Plan (1) Diarrhea: Code(s): R19.7 - Diarrhea, unspecified Category: Medical Qualifiers: Diarrhea type: unspecified type Qualified Code(s): R19.7 - Diarrhea, unspecified Plan: Pending dermatology referral Work up reassuring thus far. Reviewed (2) Dermatitis: Code(s): L30.9 - Dermatitis, unspecified Category: Medical Plan: continue topicals Pending derm consult (3) Low back pain: Code(s): M54.50 - Low back pain, unspecified Category: Medical Qualifiers: Chronicity: chronic Back pain laterality: unspecified Sciatica presence: with sciatica Sciatica laterality: bilateral sciatica Qualified Code(s): M54.41 - Lumbago with sciatica, right side; M54.42 - Lumbago with sciatica, left side; G89.29 - Other chronic pain Plan: flexeril, vicodin sent continue prn physiatry Medications: New ibuprofen 600 mg (3 x 200 mg) PO Q6H PRN 360 caps 1RF fever Refilled cyclobenzaprine 10 mg PO BID 90 tabs 1RF muscle spasm hydrocodone-acetaminophen 5-300 mg Partial Fill upon patient request. 1 tab PO Q8H PRN 21 tabs 0RF pain 7 days
== END ==
LOC: HO.HMCFM 16:32
PROVIDERS: PCP Internal Medicine; Visit Provider Internal Medicine
DX: R19.7 Diarrhea, unspecified (principal); L30.9 Dermatitis, unspecified; M54.41 Lumbago with sciatica, right side; M54.42 Lumbago with sciatica, left side; G89.29 Other chronic pain

== ENCOUNTER → 2024-03-25 16:32 | Outpatient (BNVA) | payer OTHER, SELFPAY | PROVIDERS: PCP Internal Medicine; Visit Provider Internal Medicine ==

== ENCOUNTER 2024-04-30 10:54 | Outpatient (REF) | payer OTHER, SELFPAY ==
[2024-04-30 16:00] LABS: Influenza A PCR NEGATIVE (Negative); Influenza B PCR NEGATIVE (Negative); Resp Syncy Virus RNA Qual PCR POSITIVE (Negative); SARS COV2 PCR INHOUSE NEGATIVE (Negative)
== END 2024-04-30 10:55 | disposition home or self-care (01) ==
LOC: HO.LAB 10:54
PROVIDERS: PCP Internal Medicine; Visit Provider Family Medicine
DX: R05.9 Cough, unspecified (principal); Z20.822 Contact with and (suspected) exposure to COVID-19; J45.901 Unspecified asthma with (acute) exacerbation
CPT/HCPCS: 0241U; 99212

== ENCOUNTER 2024-04-30 10:54 | Outpatient (AMB) | payer OTHER, SELFPAY ==
[2024-04-30 12:10] VITALS: BP 112/80; PULSE 68; TEMP 36.7; O2SAT 98; BMI 27.5
--- NOTE | 2024-04-30 12:10 | MHC.OFFWIV ---
Intake Vital Signs 04/30/24 12:10 Height 5 ft 3.75 in Weight 159 lb BMI 27.5 BP 112/80 Blood Pressure Location Rt brachial Position Sitting Pulse 68 Pulse Source Pulse Oximeter Temp 98.1 F Temp Source Oral Pulse Oximetry (%) 98 Oxygen Delivery Method Room Air Intake Visit Reasons: EP severe cough, congested, phlegm Intake Note: Cough Patient Tobacco Use Status: Current everyday Tobacco user Allergies nabumetone [From Relafen] Allergy (Severe, Verified 04/30/24 12:17) Anaphylaxis simvastatin Allergy (Severe, Verified 04/30/24 12:17) Muscle Pain BEE STING Allergy (Severe, Uncoded 04/30/24 12:17) Anaphylaxis HPI EP severe cough, congested, phlegm HPI Details Pt is here today c/o severe cough, chest congestion, coughing up phelgm PFSH Medical History Tobacco use disorder, continuous Seasonal allergies Right shoulder pain Right ankle pain Low back pain Left knee pain Injury of left thumb Fall (on) (from) other stairs and steps, subsequent encounter DDD (degenerative disc disease), lumbosacral Breast cancer of upper-outer quadrant of left female breast Asthma Arthritis Acute exacerbation of chronic low back pain Surgical History History of total cystectomy History of tonsillectomy and adenoidectomy History of colonoscopy History of lumpectomy Family History Mother Skin cancer Diabetes Thyroid condition Father Heart disease Acute leukemia Maternal Grandmother Uterine cancer Paternal Grandfather Stomach cancer Paternal Uncle Bladder cancer FH: prostate cancer Social History Household Members: None Housing: House Alcohol intake: current Alcohol intake frequency: a few times a week Patient Tobacco Use Status: Current everyday Tobacco user Cigarettes Per Day: 4 Years Smoked: 16 e-Cigarette/Vaping Use: Never Used service: No Current occupational status: disabled Cognitive needs: No Hearing needs: No Vision needs: Yes (reading glasses) Review of Systems Const Denies chills, Denies fatigue, Denies fever(s), Denies headache(s) and Denies weakness ENT Denies dizziness and Denies headache(s) Card Denies chest pain, Denies lightheadedness, Denies dyspnea and Denies other (Palpitations) Resp Details: Cough/See HPI Denies cough, Denies dyspnea, Denies wheezing and Denies other ( shortness of breath) Musc Denies numbness and Denies tingling Neuro Denies dizziness, Denies headache(s), Denies numbness, Denies tingling, Denies paresthesias and Denies weakness Psych Denies anxiety and Denies depression Endo Denies fatigue Aller/Immun Denies wheezing Physical Exam Vital Signs: Last Vital Signs Temp 98.1 F 04/30/24 12:10 Pulse 68 04/30/24 12:10 BP 112/80 04/30/24 12:10 Pulse Ox 98 04/30/24 12:10 Oxygen Delivery Method Room Air 04/30/24 12:10 BMI result Body Mass Index 27.5 Const Other: Patient appears mildly ill General: no acute distress and well developed Nutritional Appearance: well nourished Orientation/consciousness: patient oriented x3 HEENT Head: Yes normocephalic and Yes atraumatic Eyes General: appearance normal, both eyes and all related structures Pupils: Equal, round and reactive pupils present EOM: EOMs intact bilaterally Resp Other: Coarse breath sounds with upper airway secretions Scattered wheezing Effort & Inspection: normal respiratory effort Cardio Rate: regular rate Rhythm: regular rhythm Heart sounds: S1 normal heart sound present, S2 normal heart sound present, no gallops, no murmurs and no rubs Neuro General: patient oriented x3 and gait normal Cranial nerves: Yes Equal, round and reactive pupils present Psych Affect: normal affect Assessment & Plan Assessment & Plan (1) Asthma exacerbation: Code(s): J45.901 - Unspecified asthma with (acute) exacerbation Plan: Likely bronchitis with acute asthma exacerbation. Start Z-Eddi and prednisone Will refill her albuterol inhaler as she is out of this and she should use with sick plan of every 4 hours. Hydrate well and get plenty of rest Can not rule out underlying infection with COVID/flu/RSV so will send nasal swab to the lab (2) Cough: Code(s): R05.9 - Cough, unspecified Plan: As above Orders: Orders SARS-CoV2/FLU/RSV Today R05.9 - Cough, unspecified, Z20.822 - Contact with and (suspected) exposure to COVID-19 Coding Level of Care Code Est Pt Level 3 (08251) Diagnoses Asthma exacerbation J45.901 Cough R05.9
== END 2024-04-30 12:50 | disposition home or self-care (01) ==
LOC: HO.HMCWIC 10:54
PROVIDERS: PCP Internal Medicine; Visit Provider Family Medicine
DX: J45.901 Unspecified asthma with (acute) exacerbation (principal); R05.9 Cough, unspecified

== ENCOUNTER → 2024-06-03 08:48 | Outpatient (BNVA) | payer OTHER, SELFPAY | PROVIDERS: PCP Internal Medicine; Visit Provider Internal Medicine | DX: R94.31 Abnormal electrocardiogram [ECG] [EKG] (principal); R05.9 Cough, unspecified; R21 Rash and other nonspecific skin eruption; M19.90 Unspecified osteoarthritis, unspecified site; M54.50 Low back pain, unspecified; Z85.3 Personal history of malignant neoplasm of breast | CPT/HCPCS: 99212 ==

== ENCOUNTER 2024-07-12 08:24 | Outpatient (AMB) | payer OTHER, SELFPAY ==
--- NOTE | 2024-07-12 08:35 | A.OFFPC_ITS ---
Vital Signs 07/12/24 08:37 Height 5 ft 3.75 in Weight 155 lb 2 oz BMI 26.8 BP 124/78 Blood Pressure Location Rt brachial Position Sitting Respiration 12 Pulse 81 Pulse Source Pulse Oximeter Pulse Oximetry (%) 97 Oxygen Delivery Method Room Air Intake Visit Reasons: cpe Intake Note: Physical. Requesting refill on cyclobenzaprine and hydrochodone. Abalone Fisherman Required: No Allergies nabumetone [From Relafen] Allergy (Severe, Verified 07/12/24 08:35) Anaphylaxis simvastatin Allergy (Severe, Verified 07/12/24 08:35) Muscle Pain BEE STING Allergy (Severe, Uncoded 07/12/24 08:35) Anaphylaxis Tobacco use date assessed: 07/12/24 Dental Screening Dental Screen Date: 11/24/23 HPI HPI Comments History of Present Illness Details The patient is a 64-year-old female with a past medical history of breast cancer, CHELE, asthma, tobacco use, seasonal allergies presenting for CPE GI-Was seeing gastroenterology in Jun, now rescheduled. there has been some interval improvement-She has had more than 2 weeks of loose frequent non bloody stools. She has had ongoing bloating and bouts of diarrhea for months but worsened over the past 2 years. She is overdue for colon cancer screening. Stool studies were reassuring as was lab testing. Saw dermatology. Calp and auricular rash is much improved Musculoskeletal: Osteoarthritis, low back pain. Ankle & foot pain. On hydrocodone-acetaminophen, flexeril, ibuprofen. 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 She underwent left partial breast mastectomy: Dr. Patel). She stopped chemotherapy without completion (Taxol). She is now radiation early. Was receiving in May 2018. She has taken a rib antioxidants/anti-inflammatory supplements. Mammo 07/2023 benign. She feels nauseous for the 1-2 days following contrast Colonoscopy 2011 Breast cancer screening: at this point only open to thermal imaging ROS see HPI PHYSICAL EXAM: GENERAL: Alert and oriented x 3. NAD EYES: EOMI. Anicteric. HENT: Moist mucous membranes. No scleral icterus. No cervical lymphadenopathy. LUNGS: Clear to auscultation bilaterally. CARDIOVASCULAR: Regular rate and rhythm. No murmur. No JVD. ABDOMEN: Soft, non-tender +bs EXTREMITIES: No edema. Non-tender. SKIN: No rashes or lesions. Warm. NEUROLOGIC: No focal neurological deficits. CN II-XII grossly intact PSYCHIATRIC: Cooperative. Appropriate mood and affect [facility] Medical History Tobacco use disorder, continuous Seasonal allergies Right shoulder pain Right ankle pain Low back pain Left knee pain Injury of left thumb Fall (on) (from) other stairs and steps, subsequent encounter DDD (degenerative disc disease), lumbosacral Breast cancer of upper-outer quadrant of left female breast Asthma Arthritis Acute exacerbation of chronic low back pain Surgical History History of total cystectomy History of tonsillectomy and adenoidectomy History of colonoscopy History of lumpectomy Family History Mother Skin cancer Diabetes Thyroid condition Father Heart disease Acute leukemia Maternal Grandmother Uterine cancer Paternal Grandfather Stomach cancer Paternal Uncle Bladder cancer FH: prostate cancer Social History Household Members: None Housing: House Alcohol intake: current Alcohol intake frequency: a few times a week Patient Tobacco Use Status: Former Tobacco user Cigarettes Per Day: 4 Years Smoked: 16 e-Cigarette/Vaping Use: Never Used service: No Current occupational status: disabled Cognitive needs: No Hearing needs: No Vision needs: Yes (reading glasses) Questionnaire Thrive Questionnaire Date Thrive assessed: 11/24/23 FATMATA-7 AMB Questionnaire FATMATA-7 Date FATMATA - 7 assessed: 11/24/23 Source: Developed by Drs. Arias Kohli, Consuelo Vance, Chauncey Bower and colleagues, with an educational yoly from [employer] Physical exam (Primary Care) Vital Signs: Last Vital Signs Pulse 81 07/12/24 08:37 Resp 12 07/12/24 08:37 BP 124/78 07/12/24 08:37 Pulse Ox 97 07/12/24 08:37 Oxygen Delivery Method Room Air 07/12/24 08:37 BMI result Body Mass Index 26.8 Tobacco/Smoking Status: Tobacco use Status Tobacco use date assessed 07/12/24 07/12/24 08:43 Patient Tobacco Use Status Former Tobacco user 07/12/24 08:43 e-Cigarette/Vaping Use Never Used 07/12/24 08:43 Thrive Assessment: Date of Thrive Assessment Date Thrive assessed 11/24/23 07/12/24 08:37 Coding Level of Care Code Est Pt Prev Care 40-64y(76767) Diagnoses Physical exam Z00.00 Degeneration of intervertebral disc of lumbosacral region with discogenic back pain and lower extremity pain M51.372 Disc-related pain type: discogenic back pain and lower extremity pain Assessment & Plan Assessment & Plan (1) Physical exam: Code(s): Z00.00 - Encounter for general adult medical examination without abnormal findings Category: Medical Plan: 64 y/o for physical exam. Chronic medical conditions, interval history, medications reviewed (2) DDD (degenerative disc disease), lumbosacral: Code(s): M51.37 - Other intervertebral disc degeneration, lumbosacral region Category: Medical Qualifiers: Disc-related pain type: discogenic back pain and lower extremity pain Qualified Code(s): M51.372 - Other intervertebral disc degeneration, lumbosacral region with discogenic back pain and lower extremity pain Plan: stable on current medications. [facility] [place] signed Orders: Orders Lipid Panel 07/12/24 Z13.220 - Encounter for screening for lipoid disorders Medications: Refilled cyclobenzaprine 10 mg PO BID 90 tabs 3RF muscle spasm hydrocodone-acetaminophen 5-300 mg Partial Fill upon patient request. 1 tab PO Q8H PRN 21 tabs 0RF pain 7 days
[2024-07-12 08:37] VITALS: BP 124/78; PULSE 81; RESP 12; O2SAT 97; BMI 26.8
== END 2024-07-12 09:08 | disposition home or self-care (01) ==
PROVIDERS: PCP Internal Medicine; Visit Provider Internal Medicine
DX: Z00.00 Encounter for general adult medical examination without abnormal findings (principal); M51.372 Other intervertebral disc degeneration, lumbosacral region with discogenic back pain and lower extremity pain

== ENCOUNTER → 2024-07-12 08:24 | Outpatient (BNVA) | payer OTHER, SELFPAY | PROVIDERS: PCP Internal Medicine; Visit Provider Internal Medicine | DX: Z00.00 Encounter for general adult medical examination without abnormal findings (principal); M51.372 Other intervertebral disc degeneration, lumbosacral region with discogenic back pain and lower extremity pain; R21 Rash and other nonspecific skin eruption; Z85.3 Personal history of malignant neoplasm of breast; Z79.891 Long term (current) use of opiate analgesic | CPT/HCPCS: 99396 ==